=== PATIENT | female | born 1970 | race Caucasian/White ===

== ENCOUNTER 2016-12-11 18:40 | Emergency (ER) | payer MEDICAID, OTHER ==
[~2016-12-11] VITALS: Ht 157.5 cm; Wt 68.0 kg
[~2016-12-11 18:40] MED LIST: FIORTAB4 PO; FURO20; LORT7.5T3 PO; RIVA10; Z.0.NO CURRENT MEDS
[2016-12-11 18:42] VITALS: BP 113/98; PULSE 100; RESP 20; TEMP 98; O2SAT 97
--- NOTE | 2016-12-11 19:46 | PD ---
HPI Chief Complaint: ENT Complaint Time Seen by Provider: 19:43 Travel History International Travel<30 days: No Contact w/Intl Traveler<30days: No Traveled to known affect area: No History of Present Illness HPI Patient comes in complaining of having bilateral ears clogged. Patient states her right was been closed for approximately week and a half for left forearm over the past several days. Patient states is affecting her equilibrium. Patient tried [id number]-[id number] Debrox with bulb suctioning which seems to have made her symptoms worse and caused her to lose hearing in her left ear. Patient denies anything like this in the past. Symptoms are worse with certain positioning. Denies any fevers, headaches, sore throat, cough, chest congestion , chest pain, shortness of breath, nausea, or vomiting. Patient states when she goes from sitting standing she feels dizzy. PFSH Past Medical History Cancer: No Cardiovascular Problems: No Endocrine: No Musculoskeletal: No Neurologic: No Respiratory: Yes Migraines: Yes Sleep Apnea: Yes (CPAP) Ulcer: Yes Past Surgical History Gynecologic Surgery: Yes (C SECTION) Pacemaker: No Social History Alcohol Use: Yes (SOCIAL) Tobacco Use: Yes (1 PPD) Substance Use: No Allergies-Medications (Allergen,Severity, Reaction): Coded Allergies: Erythromycin (Verified Allergy, CRAMPS, 08/19/12) Reported Meds & Prescriptions Reported Meds & Active Scripts Active Meclizine (Meclizine HCl) 25 Mg Tab 25 Mg PO Q8HR PRN Augmentin (Amoxicillin-Clavulanate) 875-125 mg Tab 875 Mg PO BID 10 Days not for use in CrCl <30 ml/min. Reported Lasix 20 Mg Tab (Furosemide) 20 Mg Tab 20 Mg .XX DAILY Fioricet (Acetaminophen/Butalbital/Caffeine) Tab 1 Tab PO Q6HPRN FOR HEADACHE Xarelto 10 Mg Tab (Rivaroxaban) 10 Mg Tab 10 Mg .XX QD Lortab 7.5/500 (Acetaminophen/Hydrocodone Bitart) Tab 1-2 Tab PO Q6HPRN FOR PAIN No Current Meds (Miscellaneous Medication) Misc Review of Systems Except as stated in HPI: all other systems reviewed are Neg Physical Exam Narrative GENERAL: Well-developed, overly nourished, in no acute distress, and non-ill appearing. SKIN: Warm and dry. HEAD: Atraumatic. Normocephalic. EYES: Pupils equal and round. EOMI. No scleral icterus. No injection or drainage. ENT: No nasal bleeding or discharge. Mucous membranes pink and moist. Tympanic membranes partially obscured by cerumen and left completely obscured by cerumen. No tenderness to facial sinuses palpation. NECK: Trachea midline. No cervical lymphadenopathy. Supple. No nuclear rigidity. RESPIRATORY: No accessory muscle use. No respiratory distress. MUSCULOSKELETAL: No obvious deformities. No clubbing. No cyanosis. No edema. Full range of motion. NEUROLOGICAL: Awake and alert. No obvious cranial nerve deficits. Motor grossly within normal limits. Normal speech. PSYCHIATRIC: Appropriate mood and affect; insight and judgment normal. Data Data Last Documented VS Vital Signs Date Time Temp Pulse Resp B/P Pulse Ox O2 Delivery O2 Flow Rate FiO2 12/11/16 18:42 98.0 100 20 113/98 97 Orders Ear Irrigation (12/11/16 19:37) [facility] Medical Decision Making Medical Screen Exam Complete: Yes Emergency Medical Condition: Yes Differential Diagnosis Otitis media, otitis externa, benign positional vertigo, cerumen impaction, otalgia, other Narrative Course Upon reevaluation status post bilateral ear irrigation. Patient reports improvement of her symptoms and hearing has return to her left ear. Patient having pressure-like pain in her right ear. Her dizziness has improved. Bilateral tympanic membranes show moderate erythematous with air bubbles noted behind the right. Patient looks great, non-ill appearing. The patient is tolerating fluids and is well hydrated. Appears simple otitis media. No clinical evidence by history or evaluation to suspect meningitis and/or sepsis, nor malignant OE or mastoiditis. I discussed with the patient, diagnosis, plan of care and to follow up with the patients primary physician and ENT within the next week. The patient was instructed to return if worsens in anyway, especially if increased pain, persistent fever, worsening headache neck pain or as needed. The patient agreed with plan. Patient in no obvious distress upon re-evaluation. Patient was asked if they wanted to speak to my attending, which the patient did not wish to do at this time. Any questions/concerns in reference to patient diagnosis/condition discussed and clarified prior to patient's discharge. Reinforced sheer importance of close follow up with patient's primary physician or primary care clinic. Instructed patient to return to ED immediately, if symptoms return/ worsen. Pt showed understanding of above instructions. Further instructions and recommendations were detailed in discharge paperwork. Pt ambulated without difficulty out of ED at discharge. Diagnosis Primary Impression: Otitis media Qualified Code: H66.91 - Right otitis media, unspecified chronicity, unspecified otitis media type Additional Impression: Impacted cerumen of both ears Referrals: Dannie Benz MD Patient Instructions: Cerumen Impaction (ED), General Instructions, Otitis Media (ED) Additional Instructions: Follow-up with your primary care physician and ENT this week for reevaluation. Take all medication as prescribed. Use [id number] decongestant for symptomatic relief. Follow instructions on the packaging. Return to the emergency department if symptoms get worse. Med/Other Pt SpecificInfo: Prescription(s) given Scripts Meclizine 25 Mg Tab25 Mg PO Q8HR PRN (VERTIGO) #10 TAB Ref 0 Prov:Yarelis Bunch MD 12/11/16 Amoxicillin-Clavulanate (Augmentin)875-125 mg Ocl828 Mg PO BID 10 Days Ref 0 not for use in CrCl <30 ml/min. Prov:Yarelis Bunch MD 12/11/16 Disposition: 01 DISCHARGE HOME Condition: Stable Mauro Bautista Dec 11, 2016 19:45
[2016-12-11] MEDS ORDERED: MECL-62 PO (20:24)
[2016-12-11] MEDS ORDERED: AUGM875T PO (20:24)
== END 2016-12-11 20:36 | disposition home or self-care (01) ==
LOC: NETRI 18:40
DX: H66.91 Otitis media, unspecified, right ear (principal); H61.23 Impacted cerumen, bilateral; R42 Dizziness and giddiness; G47.30 Sleep apnea, unspecified; F17.200 Nicotine dependence, unspecified, uncomplicated; Z87.09 Personal history of other diseases of the respiratory system; Z86.69 Personal history of other diseases of the nervous system and sense organs
CPT/HCPCS: 99283